=== PATIENT | male | born 1985 | race Caucasian/White ===

== ENCOUNTER 2022-11-15 14:12 | Emergency (ER) | payer MEDICAID ==
[~2022-11-15] VITALS: Ht 162.6 cm; Wt 49.9 kg
[2022-11-15 14:27] VITALS: BP 130/80; PULSE 110; RESP 20; TEMP 98.9; O2SAT 98
[2022-11-15] MEDS ORDERED: WATER STERILE 10 ML MC ONE (15:04)
[2022-11-15 16:00] VITALS: O2SAT 98
== END 2022-11-15 16:46 | disposition home or self-care (01) ==
LOC: MED 14:12
DX: K94.23 Gastrostomy malfunction (principal); R11.10 Vomiting, unspecified; Z98.890 Other specified postprocedural states
CPT/HCPCS: 43762; 99284